=== PATIENT | female | born 1995 | race Caucasian/White ===

== ENCOUNTER 2021-09-16 09:34 | Emergency (ER) | payer MEDICAID ==
[~2021-09-16] VITALS: Ht 162.6 cm; Wt 68.2 kg
[2021-09-16 09:40] VITALS: BP 117/74
[2021-09-16] MEDS ORDERED: NAPR-56 PO (09:49)
[2021-09-16] MEDS ORDERED: PENI250T2 PO (09:49)
== END 2021-09-16 10:08 | disposition home or self-care (01) ==
LOC: ER 09:35
DX: K08.89 Other specified disorders of teeth and supporting structures (principal); Z79.899 Other long term (current) drug therapy
CPT/HCPCS: 99283

== ENCOUNTER 2022-08-06 22:51 | Emergency (ER) | payer MEDICAID ==
[~2022-08-06] VITALS: Ht 162.6 cm; Wt 61.0 kg
[2022-08-07 00:10] LABS: BASOPHILS % (AUTO) 0.4 % (0-1); EOSINOPHILS # (AUTO) 0.1 X10'3 (0-0.9); EOSINOPHILS % (AUTO) 1.5 % (0-6); HEMATOCRIT 41.1 % (35.0-45.0); LYMPHOCYTES # (AUTO) 1.6 X10'3 (1.1-4.8); MEAN CORPUSCULAR HEMOGLOBIN 31.6 PG (27.0-31.0); MEAN PLATELET VOLUME 8.5 FL (7.4-10.4); MONOCYTES # (AUTO) 0.5 X10'3 (0-0.9); MONOCYTES % (AUTO) 6.2 % (2-12); NEUTROPHILS # (AUTO) 6.1 X10'3 (1.8-7.7); NEUTROPHILS % (AUTO) 72.9 % (42-75); PLATELET COUNT 295 X10'3 (140-440); RED BLOOD COUNT 4.42 X10'6 (4.20-5.60); RED CELL DISTRIBUTION WIDTH 13.7 % (11.5-14.5); WHITE BLOOD COUNT 8.3 X10'3 (4.5-11.0)
[2022-08-07 00:22] LABS: ALANINE AMINOTRANSFERASE 24 U/L (12-78); ALBUMIN 4.4 G/DL (3.4-5.0); ALKALINE PHOSPHATASE 131 IU/L (46-116); ANION GAP 11 (8-16); ASPARTATE AMINO TRANSFERASE 18 U/L (10-37); BILIRUBIN,TOTAL 0.4 MG/DL (0.1-1.0); BLOOD UREA NITROGEN 7 MG/DL (7-18); CALCIUM 9.9 MG/DL (8.5-10.1); CHLORIDE 102 MMOL/L (99-107); GLUCOSE 99 MG/DL (70-104); SODIUM 142 MMOL/L (135-145); TOTAL CARBON DIOXIDE 28.9 MMOL/L (24-32); TOTAL PROTEIN 8.8 G/DL (6.4-8.2); eGFR > 90 ML/MIN
[2022-08-07] MEDS ORDERED: ondansetron/PF 4mg/2ml inj IV ONE (03:10)
[2022-08-07] MEDS ORDERED: normal saline 1000ML IV soln IVB ONE ×2 (03:10→05:10)
[2022-08-07] MEDS ORDERED: POTASSIUM BICARB 20meq eff tab 20 MEQ TABLET.EFF PO ONE (04:05)
[2022-08-07] MEDS ORDERED: POTA-207 PO (04:44)
[2022-08-07] MEDS ORDERED: ONDA4TAB12 PO (04:44)
[2022-08-07] MEDS ORDERED: metoclopramide 5 mg/ml inj IV ONE (05:10)
[2022-08-07] MEDS ORDERED: diphenhydrAMINE 50 mg/ml inj IV ONE (05:10)
[2022-08-07 06:47] VITALS: BP 100/56
[2022-08-07 07:30] LABS: URINE HCG NEGATIVE (NEG)
[2022-08-07 07:31] LABS: CLARITY,URINE CLOUDY (Clear); COLOR,URINE YELLOW (Yellow); GLUCOSE, URINE NEGATIVE (Neg); KETONES,URINE >=80 mg/dl (Neg); LEUKOCYTE ESTERASE ,URINE TRACE (Neg); NITRITES, URINE POSITIVE (Neg); OCCULT BLOOD,URINE NEGATIVE (Neg); PROTEIN,URINE NEGATIVE (Neg)
[2022-08-07 07:32] LABS: UA COLLECTION TYPE CLN CATCH MIDSTREAM
[2022-08-07 07:33] LABS: BACTERIA,URINE 4+ /HPF (Neg); MUCUS STRANDS NONE SEEN /LPF (Neg); RBC,URINE 0-2 /HPF (0-2); SQUAMOUS EPITHELIAL CELL,UR MODERATE /LPF (FEW)
[2022-08-07] MEDS ORDERED: NITR100C6 PO (08:02)
== END 2022-08-07 08:44 | disposition home or self-care (01) ==
LOC: ER 22:51
DX: N39.0 Urinary tract infection, site not specified (principal); E87.6 Hypokalemia; R11.15 Cyclical vomiting syndrome unrelated to migraine; F12.90 Cannabis use, unspecified, uncomplicated
CPT/HCPCS: 36415; 80053; 81001; 81025; 85025; 87088; 96361; 96374; 96375; 99284; J1200; J2405; J2765; J7030

== ENCOUNTER 2022-08-11 20:37 | Emergency (ER) | payer MEDICAID ==
[~2022-08-11] VITALS: Ht 165.1 cm; Wt 65.5 kg
[~2022-08-11 20:37] MED LIST: NITR100C6 PO; ONDA4TAB12 PO; POTA-207 PO
[2022-08-11 21:10] VITALS: BP 136/85
[2022-08-11] MEDS ORDERED: IBUP-1986 PO (22:10)
[2022-08-11] MEDS ORDERED: BENZ1LOZ74 PO (22:10)
[2022-08-11] MEDS ORDERED: ketorolac trometh inj. 60 MG/2 ML VIAL IM ONE (22:15)
[2022-08-11] MEDS ORDERED: LIDOcaine Viscous 15ml cup MM ONE (22:15)
== END 2022-08-11 22:41 | disposition home or self-care (01) ==
LOC: ER 20:41
DX: J02.9 Acute pharyngitis, unspecified (principal); R11.2 Nausea with vomiting, unspecified; F12.10 Cannabis abuse, uncomplicated; Z79.899 Other long term (current) drug therapy
CPT/HCPCS: 87081; 87880; 96372; 99283; J1885